=== PATIENT | female | born 1990 | race Caucasian/White ===

== ENCOUNTER 2020-01-14 20:01 | Emergency (ER) | payer OTHER ==
--- NOTE | 2020-01-14 20:12 | ED ---
SOB HPI - General Chief Complaint: Shortness of Breath Stated Complaint: SOB Time Seen by Provider: 01/14/20 20:12 Source: patient, RN notes reviewed, old records reviewed Mode of arrival: ambulatory Limitations: no limitations - History of Present Illness Initial Comments: This is a 21-year-old female DF for evaluation for shortness of breath she does admit to some anxiety having persistent episodic fevers. No pain. No recent hospital admissions or travel history no known sick contacts. MD Complaint: shortness of breath, anxiety -: days(s) Severity: moderate Severity scale (1-10): 7 Quality: aching, sharp Improves With: nothing Worsens With: exertion Known History Of: COPD, asthma Context: recent URI, choking/aspiration, anxiety, recent illness Associated Symptoms: pain with inspiration, cough, diaphoresis Treatments Prior to Arrival: none - Related Data Home Medications Medication Instructions Recorded Confirmed Acetaminophen Tab [Tylenol Tab] 1,000 mg PO ONCE PRN 01/14/20 01/14/20 guaiFENesin [Mucinex] 600 mg PO ONCE PRN 01/14/20 01/14/20 Allergies Allergy/AdvReac Type Severity Reaction Status Date / Time dimitrios Allergy Rash/Hives Verified 01/14/20 21:53 Review of Systems ROS Statement: Those systems with pertinent positive or pertinent negative responses have been documented in the HPI. ROS Other: All systems not noted in ROS Statement are negative. Past Medical History History of Any Multi-Drug Resistant Organisms: None Reported Smoking Status: Never smoker Past Alcohol Use History: Occasional Past Drug Use History: None Reported General Exam Limitations: no limitations General appearance: alert, in no apparent distress, anxious Head exam: Present: atraumatic, normocephalic, normal inspection Eye exam: Present: normal appearance, PERRL, EOMI. Absent: scleral icterus, co njunctival injection, periorbital swelling ENT exam: Present: normal exam, mucous membranes dry Neck exam: Present: normal inspection. Absent: tenderness, meningismus, lymphadenopathy Respiratory exam: Present: normal lung sounds bilaterally. Absent: respiratory distress, wheezes, rales, rhonchi, stridor Cardiovascular Exam: Present: normal rhythm, tachycardia, normal heart sounds. Absent: systolic murmur, diastolic murmur, rubs, gallop, clicks GI/Abdominal exam: Present: soft, normal bowel sounds. Absent: distended, tenderness, guarding, rebound, rigid Extremities exam: Present: normal inspection, full ROM, normal capillary refill. Absent: tenderness, pedal edema, joint swelling, calf tenderness Back exam: Present: normal inspection Neurological exam: Present: alert, oriented X3, CN II-XII intact Psychiatric exam: Present: normal affect, normal mood Skin exam: Present: warm, dry, intact, normal color. Absent: rash Course Vital Signs 01/14/20 01/14/20 01/14/20 20:02 21:13 21:24 Temperature 100.7 F H Pulse Rate 132 H 115 H 130 H Respiratory 18 Rate Blood Pressure 110/79 O2 Sat by Pulse 95 Oximetry 01/14/20 01/14/20 01/14/20 21:46 21:48 22:18 Temperature 98.9 F Pulse Rate 134 H 117 H Respiratory 18 21 20 Rate Blood Pressure 130/78 129/79 O2 Sat by Pulse 97 98 Oximetry - Reevaluation(s) Reevaluation #1: Medical record is reviewed Patient reevaluated, symptoms are significantly improved Patient informed of results and questions are answered Medical Decision Making - Medical Decision Making 29 female for shortness of breath and fever patient has viral infection with some anxiety, is concerned for coronavirus with can be discharged home - Lab Data Result diagrams: 01/14/20 21:04 01/14/20 21:04 Lab Results 01/14/20 01/14/20 01/14/20 Range/Units 21:04 21:04 21:04 WBC 13.5 H (3.8-10.6) k/uL RBC 4.42 (3.80-5.40) m/uL Hgb 13.7 (11.4-16.0) gm/dL Hct 41.5 (34.0-46.0) % MCV 94.0 (80.0-100.0) fL MCH 31.0 (25.0-35.0) pg MCHC 33.0 (31.0-37.0) g/dL RDW 11.6 (11.5-15.5) % Plt Count 306 (150-450) k/uL Neutrophils % 81 % Lymphocytes % 11 % Monocytes % 3 % Eosinophils % 4 % Basophils % 1 % Neutrophils # 11.0 H (1.3-7.7) k/uL Lymphocytes # 1.5 (1.0-4.8) k/uL Monocytes # 0.4 (0-1.0) k/uL Eosinophils # 0.5 (0-0.7) k/uL Basophils # 0.1 (0-0.2) k/uL PT 10.5 (9.0-12.0) sec INR 1.0 (<1.2) APTT 27.7 (22.0-30.0) sec Sodium 138 (137-145) mmol/L Potassium 4.1 (3.5-5.1) mmol/L Chloride 102 (98-107) mmol/L Carbon Dioxide 25 (22-30) mmol/L Anion Gap 11 mmol/L BUN 9 (7-17) mg/dL Creatinine 0.69 (0.52-1.04) mg/dL Est GFR (CKD-EPI)AfAm >90 (>60 ml/min/1.73 sqM) Est GFR (CKD-EPI)NonAf >90 (>60 ml/min/1.73 sqM) Glucose 107 H (74-99) mg/dL Plasma Lactic Acid Per (0.7-2.0) mmol/L Calcium 9.5 (8.4-10.2) mg/dL Magnesium 2.0 (1.6-2.3) mg/dL Ferritin 81.6 (10.0-291.0) ng/mL Total Bilirubin 0.8 (0.2-1.3) mg/dL AST 19 (14-36) U/L ALT 11 (4-34) U/L Alkaline Phosphatase 80 (38-126) U/L Lactate Dehydrogenase 435 (313-618) U/L C-Reactive Protein 34.3 H (<10.0) mg/L Total Protein 7.9 (6.3-8.2) g/dL Albumin 4.8 (3.5-5.0) g/dL Procalcitonin (0.02-0.09) ng/mL 01/14/20 01/14/20 Range/Units 21:04 21:04 WBC (3.8-10.6) k/uL RBC (3.80-5.40) m/uL Hgb (11.4-16.0) gm/dL Hct (34.0-46.0) % MCV (80.0-100.0) fL MCH (25.0-35.0) pg MCHC (31.0-37.0) g/dL RDW (11.5-15.5) % Plt Count (150-450) k/uL Neutrophils % % Lymphocytes % % Monocytes % % Eosinophils % % Basophils % % Neutrophils # (1.3-7.7) k/uL Lymphocytes # (1.0-4.8) k/uL Monocytes # (0-1.0) k/uL Eosinophils # (0-0.7) k/uL Basophils # (0-0.2) k/uL PT (9.0-12.0) sec INR (<1.2) APTT (22.0-30.0) sec Sodium (137-145) mmol/L Potassium (3.5-5.1) mmol/L Chloride (98-107) mmol/L Carbon Dioxide (22-30) mmol/L Anion Gap mmol/L BUN (7-17) mg/dL Creatinine (0.52-1.04) mg/dL Est GFR (CKD-EPI)AfAm (>60 ml/min/1.73 sqM) Est GFR (CKD-EPI)NonAf (>60 ml/min/1.73 sqM) Glucose (74-99) mg/dL Plasma Lactic Acid Per 0.8 (0.7-2.0) mmol/L Calcium (8.4-10.2) mg/dL Magnesium (1.6-2.3) mg/dL Ferritin (10.0-291.0) ng/mL Total Bilirubin (0.2-1.3) mg/dL AST (14-36) U/L ALT (4-34) U/L Alkaline Phosphatase (38-126) U/L Lactate Dehydrogenase (313-618) U/L C-Reactive Protein (<10.0) mg/L Total Protein (6.3-8.2) g/dL Albumin (3.5-5.0) g/dL Procalcitonin 0.05 (0.02-0.09) ng/mL - EKG Data -: EKG Interpreted by Me (EKG is sinus tachycardia 1:15 NE 140 QRS 80 QTC 445) - Radiology Data Radiology results: report reviewed (Chest x-rays negative for acute disease), image reviewed Disposition Clinical Impression: Fever, Viral infection Disposition: HOME SELF-CARE Condition: Good Instructions (If sedation given, give patient instructions): Fever in Adults (ED), Viral Syndrome (ED) Is patient prescribed a controlled substance at d/c from ED?: No Referrals: None,Stated [Primary Care Provider] - 1-2 days
--- NOTE | 2020-01-14 21:05 | XR ---
EXAMINATION TYPE: XR chest 1V portable DATE OF EXAM: 01/14/2020 COMPARISON: NONE HISTORY: Short of breath TECHNIQUE: Single view FINDINGS: Heart and mediastinum are normal. Lungs are clear. Diaphragm is normal. Bony thorax appears normal. IMPRESSION: Normal chest.
[2020-01-14] MEDS ORDERED: IPRATROPIUM-ALBUTEROL 3 ML NEB INHALATION STA (21:07)
[2020-01-14] MEDS ORDERED: SODIUM CHLORIDE 0.9% 2,000 ML IV STA (21:07)
[2020-01-14] MEDS ORDERED: ACETAMINOPHEN TAB 325 MG TAB PO STA (21:07)
[2020-01-14] MEDS ORDERED: KETOROLAC 15 MG/ML 1 ML VIAL IVP STA (21:07)
[2020-01-14 21:17] LABS: Basophils # (A) 0.1 k/uL (0-0.2); Basophils % (A) 1 %; Eosinophils # (A) 0.5 k/uL (0-0.7); Eosinophils % (A) 4 %; HCT 41.5 % (34.0-46.0); HGB 13.7 gm/dL (11.4-16.0); Lymphocytes # (A) 1.5 k/uL (1.0-4.8); Lymphocytes % (A) 11 %; Mean Platelet Volume 6.9; Monocytes # (A) 0.4 k/uL (0-1.0); Monocytes % (A) 3 %; Neutrophils % (A) 81 %; Platelet Count 306 k/uL (150-450); RBC 4.42 m/uL (3.80-5.40); RDW 11.6 % (11.5-15.5); WBC 13.5 k/uL (3.8-10.6)
[2020-01-14 21:25] LABS: Partial Thromboplastin Time 27.7 sec (22.0-30.0); Prothrombin Time 10.5 sec (9.0-12.0)
[2020-01-14 21:29] LABS: ALT 11 U/L (4-34); AST 19 U/L (14-36); African American GFR (CKD) >90 (>60 ml/min/1.73 sqM); Albumin 4.8 g/dL (3.5-5.0); Alkaline Phosphatase 80 U/L (38-126); Anion Gap 11 mmol/L; Blood Urea Nitrogen 9 mg/dL (7-17); C Reactive Protein 34.3 mg/L (<10.0); Calcium 9.5 mg/dL (8.4-10.2); Carbon Dioxide 25 mmol/L (22-30); Chloride 102 mmol/L (98-107); Glucose 107 mg/dL (74-99); LDH 435 U/L (313-618); Non-African American GFR(CKD) >90 (>60 ml/min/1.73 sqM); Potassium 4.1 mmol/L (3.5-5.1); Sodium 138 mmol/L (137-145); Total Bilirubin 0.8 mg/dL (0.2-1.3); Total Protein 7.9 g/dL (6.3-8.2)
[2020-01-14 22:19] VITALS: BP 129/79; PULSE 117; RESP 20; TEMP 98.9
[2020-01-15 04:27] LABS: Ferritin 81.6 ng/mL (10.0-291.0)
== END 2020-01-14 22:19 | disposition home or self-care (01) ==
LOC: EC 20:01
DX: B34.9 Viral infection, unspecified (principal); Z91.018 Allergy to other foods; Z20.828 Contact with and (suspected) exposure to other viral communicable diseases
CPT/HCPCS: 36415; 94640; 93005; 80053; 82728; 83605; 83615; 83735; 85025; 85610; 85730; 86140; 87040; 84145; 71045; 99285; 96374; 96361; J1885

== ENCOUNTER 2021-10-29 10:31 | Inpatient (IN) | payer OTHER ==
[2021-10-29] MEDS ORDERED: OXYTOCIN 10 UNIT/ML 1 ML VIAL IM PRN (10:36)
--- NOTE | 2021-10-29 11:07 | P.HPOB ---
History of Present Illness H&P Date: 10/29/21 Chief Complaint: Labor 31-year-old presents at 39 weeks and 6 days in active labor. She is completely dilated and +2 station. FHT 135 mod variability Review of Systems All systems: negative Constitutional: Denies chills, Denies fever Eyes: denies blurred vision, denies pain Ears, nose, mouth and throat: Denies headache, Denies sore throat Cardiovascular: Denies chest pain, Denies shortness of breath Respiratory: Denies cough Gastrointestinal: Denies abdominal pain, Denies diarrhea, Denies nausea, Denies vomiting Genitourinary: Denies dysuria, Denies hematuria Musculoskeletal: Denies myalgias Integumentary: Denies pruritus, Denies rash Neurological: Denies numbness, Denies weakness Psychiatric: Denies anxiety, Denies depression Endocrine: Denies fatigue, Denies weight change Past Medical History History of Any Multi-Drug Resistant Organisms: None Reported Smoking Status: Never smoker Past Alcohol Use History: Occasional Past Drug Use History: None Reported Medications and Allergies Home Medications Medication Instructions Recorded Confirmed Type Acetaminophen Tab [Tylenol Tab] 1,000 mg PO ONCE PRN 01/14/20 01/14/20 History guaiFENesin [Mucinex] 600 mg PO ONCE PRN 01/14/20 01/14/20 History Allergies Allergy/AdvReac Type Severity Reaction Status Date / Time dimitrios Allergy Rash/Hives Verified 10/29/21 10:33 Exam Osteopathic Statement: *. No significant issues noted on an osteopathic structural exam other than those noted in the History and Physical/Consult. Heart: Regular rate and rhythm Lungs: Clear to auscultation bilaterally Abdomen: Soft, nontender Extremities: Negative Homans sign Assessment and Plan (1) Normal labor Current Visit: Yes Status: Acute Code(s): O80 - ENCOUNTER FOR FULL-TERM UNCOMPLICATED DELIVERY; Z37.9 - OUTCOME OF DELIVERY, UNSPECIFIED SNOMED Code(s): 74408951 Plan: 1. Admit to family place 2. Anticipate normal vaginal delivery
--- NOTE | 2021-10-29 11:10 | P.PROBDLV ---
Vaginal Delivery Note - . Vaginal Delivery Note: 31-year-old presented at 39 weeks and 6 days in active labor. heart tones are 135 with moderate variability and reactive. Her water broke around 8:30 this morning she started having contractions soon thereafter. When she presented to the hospital cervix was completely dilated and she was +2 station. I was not present yet so Dr. Hughes was there, patient pushed and delivered a viable male over intact perineum at 1047. Head was delivered OA, ant erior shoulder delivered gentle downward guidance followed by posterior shoulder and rest of body. Nose and mouth were bulb suctioned cord clamped and cut infant placed on mother's abdomen. Apgars 9, 9, weight 9 lbs. 3 oz. Placenta delivered spontaneous, intact with three-vessel cord at 1054 a.m. Vagina, cervix, and perineum were inspected and this is when I took over her care. Left labial laceration was repaired with 3-0 Vicryl in a subcuticular fashion. Estimated blood loss 150 mL mother and baby in stable condition.
[2021-10-29] MEDS ORDERED: SIMETHICONE 80 MG CHEWABLE PO PRN (11:11)
[2021-10-29] MEDS ORDERED: LANOLIN CREAM 5 GM TUBE TOPICAL PRN (11:11)
[2021-10-29] MEDS ORDERED: diphenhydrAMINE 50 MG CAP PO PRN (11:11)
[2021-10-29] MEDS ORDERED: diphenhydrAMINE 25 MG CAP PO PRN (11:11)
[2021-10-29] MEDS ORDERED: diphenhydrAMINE 50 MG/ML 1 ML VIAL IVP PRN ×2 (11:11)
[2021-10-29] MEDS ORDERED: HYDROCORTISONE 2.5% RECTAL CREAM 30 GM TUBE RECTAL PRN (11:11)
[2021-10-29] MEDS ORDERED: BENZOCAINE/MENTHOL SPRAY 1 GM/SPRAY AEROSOL TOPICAL PRN (11:11)
[2021-10-29] MEDS ORDERED: IBUPROFEN 600 MG TAB PO PRN (11:11)
[2021-10-29] MEDS ORDERED: ACETAMINOPHEN TAB 325 MG TAB PO PRN (11:11)
[2021-10-29] MEDS ORDERED: ZOLPIDEM 5 MG TAB PO PRN (11:11)
[2021-10-29] MEDS ORDERED: OXYTOCIN 30 UNITS/500 ML NS 30 UNIT in SALINE 1 500ML.BAG IV SCH (11:15)
[2021-10-29] MEDS ORDERED: OXYTOCIN 10 UNIT/ML 1 ML VIAL IM ONE (11:29)
[2021-10-29] MEDS ORDERED: LIDOCAINE 0.5% (PF) 5 MG/ML (50 ML SDV) SQ PRN (11:37)
[2021-10-29 15:07] LABS: Basophils % (A) 0 %; Eosinophils % (A) 0 %; HCT 34.4 % (34.0-46.0); HGB 11.6 gm/dL (11.4-16.0); Lymphocytes # (A) 1.2 k/uL (1.0-4.8); Lymphocytes % (A) 9 %; MCH 33.7 pg (25.0-35.0); MCHC 33.8 g/dL (31.0-37.0); MCV 99.6 fL (80.0-100.0); Mean Platelet Volume 8.7; Monocytes # (A) 0.5 k/uL (0-1.0); Monocytes % (A) 3 %; Neutrophils # (A) 12.7 k/uL (1.3-7.7); Neutrophils % (A) 87 %; Platelet Count 238 k/uL (150-450); RBC 3.46 m/uL (3.80-5.40); RDW 12.5 % (11.5-15.5); WBC 14.6 k/uL (3.8-10.6)
[2021-10-29] MEDS: SENNOSIDES-DOCUSATE SODIUM 1 EACH TAB PO SCH (19:06)
--- NOTE | 2021-10-30 07:07 | P.DS ---
Providers Date of admission: 10/29/21 10:46 Expected date of discharge: 10/30/21 Attending physician: Anum Schmitt Primary care physician: Stated None - Discharge Diagnosis(es) (1) Normal labor Current Visit: Yes Status: Resolved (2) Status post normal vaginal delivery Current Visit: Yes Status: Acute Hospital Course: Patient presented in active labor. She underwent a normal vaginal delivery. course was uncomplicated. She denies nausea, vomiting, chest pain, shortness of breath and Pain. Patient will be discharged home day #1 in stable condition to follow-up with me in 6 weeks. Plan - Discharge Summary New Discharge Prescriptions: New Ibuprofen [Motrin] 600 mg PO Q6HR PRN #30 tab PRN Reason: Mild Pain (Scale 1 To 3) Discharge Medication List Ibuprofen [Motrin] 600 mg PO Q6HR PRN #30 tab 10/30/21 [Rx] Follow up Appointment(s)/Referral(s): Anum Schmitt DO [Doctor of Osteopathic Medicine] - 6 Weeks Discharge Disposition: HOME SELF-CARE
[2021-10-30 07:42] LABS: Basophils # (A) 0.1 k/uL (0-0.2); Basophils % (A) 1 %; Eosinophils # (A) 0.1 k/uL (0-0.7); Eosinophils % (A) 1 %; HCT 38.9 % (34.0-46.0); Lymphocytes # (A) 2.6 k/uL (1.0-4.8); Lymphocytes % (A) 17 %; MCH 33.7 pg (25.0-35.0); MCHC 33.3 g/dL (31.0-37.0); Mean Platelet Volume 8.1; Monocytes # (A) 0.6 k/uL (0-1.0); Monocytes % (A) 4 %; Neutrophils # (A) 12.1 k/uL (1.3-7.7); Neutrophils % (A) 77 %; Platelet Count 276 k/uL (150-450); RBC 3.85 m/uL (3.80-5.40); RDW 12.6 % (11.5-15.5); WBC 15.7 k/uL (3.8-10.6)
[2021-10-30] MEDS: SENNOSIDES-DOCUSATE SODIUM 1 EACH TAB PO SCH (08:13)
[2021-10-30 08:54] VITALS: BP 109/70; PULSE 107; RESP 16; TEMP 98.1
== END 2021-10-30 14:40 | disposition home or self-care (01) | DRG 807 ==
LOC: FBPOP 10:31 → 4FBP 10:46
PROVIDERS: ADMIT Obstetrics & Gynecology; ATTEND Obstetrics & Gynecology
PROC: 10E0XZZ Delivery of Products of Conception, External Approach (ICD-10-PCS; principal; 2021-10-29)
PROC: 0HQ9XZZ Repair Perineum Skin, External Approach (ICD-10-PCS; principal; 2021-10-29)
DX: O80 Encounter for full-term uncomplicated delivery (principal); Z37.0 Single live birth; O70.0 First degree perineal laceration during delivery; Z3A.39 39 weeks gestation of pregnancy; Z91.018 Allergy to other foods
CPT/HCPCS: 85025; 86850; 86900; 86901; 99213